=== PATIENT | male | born 1990 | race Two or more races ===

== ENCOUNTER 2017-05-07 10:18 | Outpatient (CLI) | payer OTHER ==
--- NOTE | 2017-05-07 14:23 | Diagnostic Imaging Report ---
Indications: Right testicular pain and groin pain Technique: Grayscale and duplex images of the scrotum Comparison:None Findings:The right testicle measures 3.3cm in length. It demonstrates normal echogenicity. Normal Doppler flow. Normal epididymis. There are few testicular calcifications. A small hydrocele. There is a small varicocele The left testicle measures 4.3 cm in length. It contains a few calcifications. It demonstrates normal echogenicity and normal Doppler flow. Normal epididymis. There is a moderate size varicocele. Impression: Bilateral upper right varicoceles Small right hydrocele Nonspecific bilateral testicular calcifications No acute abnormality. No evidence of torsion or epididymoorchitis
== END 2017-05-07 12:18 | disposition home or self-care (01) ==
LOC: ULS 10:18
DX: I86.1 Scrotal varices (principal); N43.3 Hydrocele, unspecified
CPT/HCPCS: 76870